=== PATIENT | female | born 1975 | race American Indian/Alaskan Native ===

== ENCOUNTER 2016-07-13 17:39 | Emergency (ER) | payer SELFPAY ==
[2016-07-13 18:10] VITALS: BP 198/102
--- NOTE | 2016-07-13 20:19 | Emergency Department Report ---
ED ENT HPI - General Chief complaint: Headache Stated complaint: SEVERE PAIN ON RIGHT SIDE OF HEAD Time Seen by Provider: 07/13/16 20:18 Source: patient Mode of arrival: Ambulatory Limitations: No Limitations - History of Present Illness Initial comments: 41-year-old female comes in with complaint of right side face pain with headache. Patient reports that she has a few bad teeth in her mouth that the pain is traveled up to her head. She does not have a dentist past medical history consists of hypertension. She denies any nausea vomiting or chills no fever. She has tried taking Aleve and Advil without any resolution of her pain. She reports she does not have a dentist. She does admit that she has not taken her hypertensive medicine which consists of hydrochlorothiazide 25 mg since Sunday. MD complaint: tooth pain Severity: severe Severity scale (0 -10): 10 Quality: stabbing, aching Consistency: constant Improves with: none - Related Data Home Medications Medication Instructions Recorded Confirmed Last Taken Albuterol Sulfate [Ventolin HFA] 2 puff IH Q4H PRN 04/28/15 04/28/15 Unknown Ergocalciferol (Vitamin D2) 1.25 mg PO DAILY 04/28/15 04/28/15 Unknown [Vitamin D2] Hydrochlorothiazide [HCTZ] 25 mg PO QDAY 04/28/15 04/28/15 Unknown Tl-Hem 150 1 tab PO DAILY 04/28/15 05/11/15 Unknown Previous Rx's Medication Instructions Recorded Last Taken Type Sennosides Tab [Senokot] 17.2 mg PO QHS PRN #30 tablet 05/12/15 Unknown Rx oxyCODONE /ACETAMINOPHEN [Percocet 1 tab PO Q4HR #30 tablet 05/12/15 Unknown Rx 5/325 mg] Clindamycin [Clindamycin CAP] 300 mg PO Q8H #30 cap 07/13/16 Unknown Rx Ibuprofen [Motrin 800 MG tab] 800 mg PO TID PRN #30 tablet 07/13/16 Unknown Rx Allergies Allergy/AdvReac Type Severity Reaction Status Date / Time No Known Allergies Allergy Unverified 04/27/15 09:59 ED Dental HPI - General Chief complaint: Headache Stated complaint: SEVERE PAIN ON RIGHT SIDE OF HEAD Time Seen by Provider: 07/13/16 20:18 Source: patient Mode of arrival: Ambulatory Limitations: No Limitations - Related Data Home Medications Medication Instructions Recorded Confirmed Last Taken Albuterol Sulfate [Ventolin HFA] 2 puff IH Q4H PRN 04/28/15 04/28/15 Unknown Ergocalciferol (Vitamin D2) 1.25 mg PO DAILY 04/28/15 04/28/15 Unknown [Vitamin D2] Hydrochlorothiazide [HCTZ] 25 mg PO QDAY 04/28/15 04/28/15 Unknown Tl-Hem 150 1 tab PO DAILY 04/28/15 05/11/15 Unknown Previous Rx's Medication Instructions Recorded Last Taken Type Sennosides Tab [Senokot] 17.2 mg PO QHS PRN #30 tablet 05/12/15 Unknown Rx oxyCODONE /ACETAMINOPHEN [Percocet 1 tab PO Q4HR #30 tablet 05/12/15 Unknown Rx 5/325 mg] Clindamycin [Clindamycin CAP] 300 mg PO Q8H #30 cap 07/13/16 Unknown Rx Ibuprofen [Motrin 800 MG tab] 800 mg PO TID PRN #30 tablet 07/13/16 Unknown Rx Allergies Allergy/AdvReac Type Severity Reaction Status Date / Time No Known Allergies Allergy Unverified 04/27/15 09:59 ED Review of Systems ROS: Stated complaint: SEVERE PAIN ON RIGHT SIDE OF HEAD Other details as noted in HPI ENT: dental pain Neurological: headache ED Past Medical Hx - Past Medical History Previous Medical History?: Yes Hx Hypertension: Yes (2009) Hx Congestive Heart Failure: No Hx Diabetes: No Hx Asthma: Yes Hx COPD: No Hx HIV: No - Surgical History Hx Cholecystectomy: Yes Additional Surgical History: HYSTERECTOMY - Social History Smoking Status: Never Smoker Substance Use Type: None - Medications Home Medications: Home Medications Medication Instructions Recorded Confirmed Last Taken Type Albuterol Sulfate [Ventolin HFA] 2 puff IH Q4H PRN 04/28/15 04/28/15 Unknown History Ergocalciferol (Vitamin D2) 1.25 mg PO DAILY 04/28/15 04/28/15 Unknown History [Vitamin D2] Hydrochlorothiazide [HCTZ] 25 mg PO QDAY 04/28/15 04/28/15 Unknown History Tl-Hem 150 1 tab PO DAILY 04/28/15 05/11/15 Unknown History Sennosides Tab [Senokot] 17.2 mg PO QHS PRN #30 tablet 05/12/15 Unknown Rx oxyCODONE /ACETAMINOPHEN [Percocet 1 tab PO Q4HR #30 tablet 05/12/15 Unknown Rx 5/325 mg] Clindamycin [Clindamycin CAP] 300 mg PO Q8H #30 cap 07/13/16 Unknown Rx Ibuprofen [Motrin 800 MG tab] 800 mg PO TID PRN #30 tablet 07/13/16 Unknown Rx ED Physical Exam - General Limitations: No Limitations, Language Barrier - Head Head exam: Present: atraumatic, normocephalic - Eye Eye exam: Present: normal appearance - Expanded ENT Exam Expanded Teeth exam: Present: dental caries, fractured tooth # (32, 19, 18) Throat exam: Positive: normal inspection - Neck Neck exam: Present: normal inspection, tenderness (right jaw tenderness) - Cardiovascular Cardiovascular Exam: Present: regular rate, normal rhythm, normal heart sounds ED Course Vital Signs 07/13/16 18:06 Temperature 98.9 F Pulse Rate 81 Respiratory 22 Rate Blood Pressure 198/102 O2 Sat by Pulse 100 Oximetry ED Medical Decision Making - Medical Decision Making Patient's been evaluated by this provider fast track. Discussed the patient we' ll give her something for pain as well as will start her on clindamycin 600 mg by mouth now discharged her on clindamycin 300 mg by mouth 3 times a day for 10 days. Also discharged patient on ibuprofen 800 mg one tablet by mouth 3 times a day when necessary for pain. We will give patient [place] 5/325 mg now. As well as we will refer her to one of the community dentists Critical care attestation.: If time is entered above; I have spent that time in minutes in the direct care of this critically ill patient, excluding procedure time. ED Disposition Clinical Impression: Partial loss of tooth due to caries Qualifiers: Tooth loss class: class IV tooth loss Qualified Code(s): K08.434 - Partial loss of teeth due to caries, class IV Partial loss of tooth due to caries Qualifiers: Tooth loss class: class IV tooth loss Qualified Code(s): K08.434 - Partial loss of teeth due to caries, class IV Disposition: DISCHARGED TO HOME OR SELFCARE Is pt being admited?: No Does the pt Need Aspirin: No Condition: Stable Instructions: Dental Caries (ED), Toothache (ED), Dental Abscess (ED) Additional Instructions: Complete all antibiotics as prescribed IB Profen when necessary for pain. Importantly to follow with a dentist Prescriptions: Clindamycin [Clindamycin CAP] 300 mg PO Q8H #30 cap Ibuprofen [Motrin 800 MG tab] 800 mg PO TID PRN #30 tablet PRN Reason: Pain Referrals: PRIMARY CARE, [Primary Care Provider] - 3-5 Days Forms: Work/School Release Form(ED)
[2016-07-13] MEDS ORDERED: NORCO 5/325 PO ONE (20:20)
[2016-07-13] MEDS ORDERED: CLEOCIN PO ONE (20:20)
== END 2016-07-13 20:32 | disposition home or self-care (01) ==
LOC: ED 17:39
DX: K08.4 Partial loss of teeth (principal); I10 Essential (primary) hypertension; J45.909 Unspecified asthma, uncomplicated
CPT/HCPCS: 99282

== ENCOUNTER 2017-04-30 05:26 | Emergency (ER) | payer SELFPAY ==
[2017-04-30 05:36] VITALS: BP 184/90
[2017-04-30] MEDS ORDERED: TRIMOX PO ONE (09:41)
[2017-04-30] MEDS ORDERED: TYLENOL #3 PO ONE (09:41)
--- NOTE | 2017-04-30 09:42 | Emergency Department Report ---
HPI - General Chief Complaint: Dental/Oral Time Seen by Provider: 04/30/17 09:17 - HPI HPI: The patient is a 42-year-old female who presents to ED complaining of 7/10 pain in the right side of his mouth x 3days . Patient states that the pain started 3 days ago and has been worse since then The pain is exacerbated by eating and opening of the mouth. Patient states that it radiates towards throat and ear. Patient describes a as a throbbing, pressure-like sensation. Patient states otherwise well and has no other complaints. Patient has had no fevers and no chills. No chest pain, no shortness of breath. No abdominal pain. No shortness of breath or recent trauma to the face. ED Past Medical Hx - Past Medical History Previous Medical History?: Yes Hx Hypertension: Yes (2009) Hx Congestive Heart Failure: No Hx Diabetes: No Hx Asthma: Yes Hx COPD: No Hx HIV: No Additional medical history: Anemia - Surgical History Past Surgical History?: Yes Hx Cholecystectomy: Yes Additional Surgical History: HYSTERECTOMY - Social History Smoking Status: Never Smoker Substance Use Type: None - Medications Home Medications: Home Medications Medication Instructions Recorded Confirmed Last Taken Type Albuterol Sulfate [Ventolin HFA] 2 puff IH Q4H PRN 04/28/15 04/28/15 Unknown History Ergocalciferol (Vitamin D2) 1.25 mg PO DAILY 04/28/15 04/28/15 Unknown History [Vitamin D2] Hydrochlorothiazide [HCTZ] 25 mg PO QDAY 04/28/15 04/28/15 Unknown History Tl-Hem 150 1 tab PO DAILY 04/28/15 05/11/15 Unknown History Sennosides Tab [Senokot] 17.2 mg PO QHS PRN #30 tablet 05/12/15 Unknown Rx oxyCODONE /ACETAMINOPHEN [Percocet 1 tab PO Q4HR #30 tablet 05/12/15 Unknown Rx 5/325 mg] Clindamycin [Clindamycin CAP] 300 mg PO Q8H #30 cap 07/13/16 Unknown Rx Acetaminophen/Codeine [Tylenol 1 tab PO Q6H #10 tablet 04/30/17 Unknown Rx /Codeine # 3 tab] Amoxicillin [Trimox CAP] 500 mg PO TID #21 capsule 04/30/17 Unknown Rx Ibuprofen [Motrin 800 MG tab] 800 mg PO TID PRN #30 tablet 04/30/17 Unknown Rx ED Review of Systems ROS: Stated complaint: TOOTHACHE Other details as noted in HPI Constitutional: denies: chills, fever Eyes: denies: eye pain, eye discharge, vision change ENT: dental pain. denies: ear pain, throat pain, hearing loss, congestion Respiratory: denies: cough, shortness of breath, wheezing Cardiovascular: denies: chest pain, palpitations Endocrine: no symptoms reported Gastrointestinal: denies: abdominal pain, nausea, diarrhea Genitourinary: denies: urgency, dysuria, discharge Musculoskeletal: denies: back pain, joint swelling, arthralgia Skin: denies: rash, lesions Neurological: denies: headache, weakness, paresthesias Psychiatric: denies: anxiety, depression Hematological/Lymphatic: denies: easy bleeding, easy bruising Physical Exam - Physical Exam Vital Signs: Vital Signs 04/30/17 05:32 Temperature 98.1 F Pulse Rate 63 Respiratory 18 Rate Blood Pressure 184/90 O2 Sat by Pulse 100 Oximetry Physical Exam: GENERAL: Alert and oriented x3, no apparent distress, Normal Gait, atraumatic. HEAD: Head is normocephalic and a-traumatic. EYES: Extra ocular muscles are intact. Pupils are equal, round, and reactive to light and accommodation. EARS: symetrical, atraumatic, non tender, ear canal clear and moderate cerumen, tympanic membrance non inflamed. gross auditory nml bilaterally. NOSE: Nose symetrical, Nontender,Nares appeared normal. MOUTH:Mouth is well hydrated and without lesions. Tonsils nonerythematous or swollen, Uvula midline, Tongue not elevated. Mucous membranes are moist. Posterior pharynx clear, no exudate or lesions. Patent airways. Tooth #30 partially missing, tooth #20 and 21 partially missing. Tender to palpation above tooth #30. No change of her enlargement, no bleeding of the gums, no discharge NECK: Supple. Non edematous, No lymphadenopathy or thyromegaly. SKIN: Warm and dry, No lesions, No ulceration or induration present. ED Course Vital Signs 04/30/17 05:32 Temperature 98.1 F Pulse Rate 63 Respiratory 18 Rate Blood Pressure 184/90 O2 Sat by Pulse 100 Oximetry ED Medical Decision Making - Medical Decision Making 42-year-old female who presents with right sided Facial pain secondary to odontogenic caries ED course: Patient received 1000 mg of amoxicillin, 2 tablets of Tylenol No. 3. Odontogenic infection versus ear infection. Based upon history and physical examination, pain is a result of an infection of tooth number 30 and that the pain Pt feels on the right side of his face and towards the ear is referred pain from this infectious process. Pt has no evidence of acute impending airway compromise. At this point, patient will be discharged home on some antibiotics and pain trial, she will do well with an outpatient course of antibiotics. Follow up with the Dental Clinic as referred Vital signs are normal patient is in no acute distress. Pt had an effect uneventful ED stay Critical care attestation.: If time is entered above; I have spent that time in minutes in the direct care of this critically ill patient, excluding procedure time. ED Disposition Clinical Impression: Pain, dental Disposition: TO HOME OR SELFCARE Is pt being admited?: No Does the pt Need Aspirin: No Condition: Stable Instructions: Toothache (ED), Dental Caries (ED) Additional Instructions: Make sure you take your antibiotic dose and complete it Take medications as needed for pain Follow up with dental clinic as referred. Prescriptions: Acetaminophen/Codeine [Tylenol /Codeine # 3 tab] 1 tab PO Q6H #10 tablet Amoxicillin [Trimox CAP] 500 mg PO TID #21 capsule Ibuprofen [Motrin 800 MG tab] 800 mg PO TID PRN #30 tablet PRN Reason: Pain Referrals: PRIMARY CARE, [Primary Care Provider] - 3-5 Days [facility] [Outside] - 3-5 Days [facility] [Outside] - 3-5 Days [facility] [Outside] - 3-5 Days [facility] [Outside] - 3-5 Days Forms: Accompanied Note, Work/School Release Form(ED) Time of Disposition: 10:00
== END 2017-04-30 10:10 | disposition home or self-care (01) ==
LOC: ED 05:26
DX: K08.89 Other specified disorders of teeth and supporting structures (principal); I10 Essential (primary) hypertension; J45.909 Unspecified asthma, uncomplicated; Z90.49 Acquired absence of other specified parts of digestive tract
CPT/HCPCS: 99282

== ENCOUNTER 2018-08-30 21:33 | Inpatient (IN) | payer SELFPAY ==
[2018-08-30] MEDS ORDERED: ASPIRIN PO ONE (21:43)
--- NOTE | 2018-08-30 21:46 | Emergency Department Report ---
Chief Complaint: Chest Pain Stated Complaint: CHEST PRESSURE, LEFT SIDE NUMBNESS Time Seen by Provider: 08/30/18 21:41 - HPI History of Present Illness: This is a 43 y.o. female that presents with substernal chest pain that is radiating down LUE for 30 mins to 1 hour. PMH iron deficiency, HTN, and Asthma. - ROS Review of Systems: substernal chest pain radiating to LLE. - Exam Vital Signs: Vital Signs 08/30/18 21:42 Temperature 98.1 F Pulse Rate 112 H Respiratory 18 Rate Blood Pressure 198/97 O2 Sat by Pulse 97 Oximetry MSE screening note: Focused history and physical exam performed. Due to findings the following was ordered: Labs, ekg, and CXR ED Disposition for MSE Condition: Stable
[2018-08-30 22:01] LABS: Basophils % (Auto) 0.5 % (0.0-1.8); Eosinophils # (Auto) 0.1 K/mm3 (0.0-0.4); Eosinophils % (Auto) 0.8 % (0.0-4.3); Hematocrit 35.6 % (30.3-42.9); Hemoglobin 11.7 gm/dl (10.1-14.3); Lymphocytes # (Auto) 3.2 K/mm3 (1.2-5.4); Lymphocytes % (Auto) 40.9 % (13.4-35.0); Mean Corpuscular HGB Conc 33 % (30-34); Mean Corpuscular Volume 89 fl (79-97); Monocytes # (Auto) 0.3 K/mm3 (0.0-0.8); Monocytes % (Auto) 4.3 % (0.0-7.3); Platelet Count 245 K/mm3 (140-440); Red Blood Count 4.01 M/mm3 (3.65-5.03); Red Cell Distribution Width 14.8 % (13.2-15.2)
--- NOTE | 2018-08-30 22:23 | Emergency Department Report ---
ED Chest Pain HPI - General Chief Complaint: Chest Pain Stated Complaint: CHEST PRESSURE, LEFT SIDE NUMBNESS Time Seen by Provider: 08/30/18 22:01 Source: patient Mode of arrival: Ambulatory Limitations: No Limitations - History of Present Illness Initial Comments: Patient is a 43-year-old female that presents emergency room with complaints of chest pain that started when he minutes prior to arrival. Patient states her pain is the same. Patient denies diaphoresis and nausea and vomiting. Patient states the pain is a 7 out of 10. Patient states that she is also having shortness of breath. Patient states her symptoms are better with rest and worse with exertion. Patient denies anxiety. MD Complaint: chest pain -: Sudden Onset: during rest Pain Location: substernal, left chest Pain Radiation: LUE Severity: severe Severity scale (0 -10): 7 Quality: aching, heaviness, sharp Consistency: constant Improves With: rest Worsens With: exertion re: dyspnea, sense of impending doom. denies: nausea, vomting, diaphoresis Other Symptoms: denies: cough, fever, syncope, rash, acid taste in mouth, leg swelling, palpitations, burping Treatments Prior to Arrival: none Aspirin use within the Past 7 Days: (1) Yes - Related Data On Oral Contraceptives: No Home Medications Medication Instructions Recorded Confirmed Last Taken No Known Home Medications [No 08/31/18 08/31/18 Unknown Reported Home Medications] Allergies Allergy/AdvReac Type Severity Reaction Status Date / Time No Known Allergies Allergy Verified 04/30/17 05:35 Heart Score - HEART Score History: Slightly suspicious EKG: Non-specific Age: 45-65 Risk factors: No known risk factors Troponin: < normal limit HEART Score: 2 ED Review of Systems ROS: Stated complaint: CHEST PRESSURE, LEFT SIDE NUMBNESS Other details as noted in HPI Constitutional: denies: chills, fever Eyes: denies: eye pain, eye discharge, vision change ENT: denies: ear pain, throat pain Respiratory: denies: cough, shortness of breath, wheezing Cardiovascular: denies: chest pain, palpitations Endocrine: no symptoms reported Gastrointestinal: denies: abdominal pain, nausea, diarrhea Genitourinary: denies: urgency, dysuria, discharge Musculoskeletal: denies: back pain, joint swelling, arthralgia Skin: denies: rash, lesions Neurological: denies: headache, weakness, paresthesias Psychiatric: denies: anxiety, depression Hematological/Lymphatic: denies: easy bleeding, easy bruising ED Past Medical Hx - Past Medical History Previous Medical History?: Yes Hx Hypertension: Yes (2009) Hx Congestive Heart Failure: No Hx Diabetes: No Hx Asthma: Yes Hx COPD: No Hx HIV: No Additional medical history: Anemia - Surgical History Hx Cholecystectomy: Yes Additional Surgical History: HYSTERECTOMY - Family History Family history: hypertension - Social History Smoking Status: Current Every Day Smoker Substance Use Type: None - Medications Home Medications: Home Medications Medication Instructions Recorded Confirmed Last Taken Type No Known Home Medications [No 08/31/18 08/31/18 Unknown History Reported Home Medications] ED Physical Exam - General Limitations: No Limitations General appearance: alert, in no apparent distress - Head Head exam: Present: atraumatic, normocephalic - Eye Eye exam: Present: normal appearance - ENT ENT exam: Present: mucous membranes moist - Neck Neck exam: Present: normal inspection - Respiratory Respiratory exam: Present: normal lung sounds bilaterally. Absent: respiratory distress - Cardiovascular Cardiovascular Exam: Present: regular rate, normal rhythm. Absent: systolic murmur, diastolic murmur, rubs, gallop - GI/Abdominal GI/Abdominal exam: Present: soft, normal bowel sounds - Extremities Exam Extremities exam: Present: normal inspection - Back Exam Back exam: Present: normal inspection - Neurological Exam Neurological exam: Present: alert, oriented X3 - Psychiatric Psychiatric exam: Present: normal affect, normal mood - Skin Skin exam: Present: warm, dry, intact, normal color. Absent: rash ED Course Vital Signs 08/30/18 08/30/18 08/30/18 21:42 23:16 23:20 Temperature 98.1 F Pulse Rate 112 H 79 Respiratory 18 16 16 Rate Blood Pressure 198/97 Blood Pressure [Right] O2 Sat by Pulse 97 98 Oximetry 08/30/18 08/30/18 08/30/18 23:23 23:31 23:45 Temperature 98.6 F Pulse Rate 73 83 74 Respiratory 11 L 15 11 L Rate Blood Pressure 166/86 173/85 Blood Pressure 172/85 [Right] O2 Sat by Pulse 100 100 98 Oximetry 08/31/18 08/31/18 08/31/18 00:00 00:15 00:30 Temperature Pulse Rate 73 84 74 Respiratory 14 14 18 Rate Blood Pressure 153/87 146/86 168/90 Blood Pressure [Right] O2 Sat by Pulse 99 98 98 Oximetry 08/31/18 08/31/18 00:45 01:00 Temperature Pulse Rate 71 72 Respiratory 21 16 Rate Blood Pressure 155/81 157/82 Blood Pressure [Right] O2 Sat by Pulse 98 100 Oximetry - Reevaluation(s) Reevaluation #1: Discussed all results the patient. Patient admitted to the hospitalist service. Patient agrees with admission 08/31/18 00:04 - Consultations Consultation #1: Hospitalist consulted for admission. Hospitalist to admit patient. Hospitalist to assume care patient 08/31/18 00:04 NAIN score - Nain Score Age > 65: (0) No Aspirin use within the Past 7 Days: (0) No 3 or more CAD Risk Factors: (0) No 2 or more Angina events in past 24 hrs: (0) No Known CAD with more than 50% Stenosis: (0) No Elevated Cardiac Markers: (0) No ST Deviation Greater than 0.5mm: (0) No NAIN Score: 0 ED Medical Decision Making - Lab Data Result diagrams: 08/30/18 21:46 08/30/18 21:46 - EKG Data -: EKG Interpreted by [facility] EKG shows normal: sinus rhythm, axis, intervals, QRS complexes, ST-T waves Rate: normal - Radiology Data Radiology results: report reviewed, image reviewed PROCEDURE: Chest. TECHNIQUE: Portable AP view. HISTORY: Chest pain. COMPARISONS: None. FINDINGS: The heart and mediastinum appear normal. The lungs are clear and well expanded. There are no pleural effusions. The soft tissues and regional skeleton are unremarkable. IMPRESSION: Negative portable chest. - Medical Decision Making She is a 43-year-old female that presents emergency room with complaints of chest pain. Patient admitted to the hospitalist service for further outpatient treatment and rule out ACS. Patient's initial cardiac workup negative. EKG negative. Patient's chest x-ray negative. - Differential Diagnosis chest pain. ACS. Shortness of breath. Critical care attestation.: If time is entered above; I have spent that time in minutes in the direct care of this critically ill patient, excluding procedure time. ED Disposition Clinical Impression: Shortness of breath at rest Chest pain Qualifiers: Chest pain type: unspecified Qualified Code(s): R07.9 - Chest pain, unspecified Hypertension Qualifiers: Hypertension type: essential hypertension Qualified Code(s): I10 - Essential (primary) hypertension Disposition: DC-09 OP ADMIT IP TO THIS HOSP Is pt being admited?: Yes Does the pt Need Aspirin: No Condition: Serious Time of Disposition: 03:33
[2018-08-30 22:26] LABS: BUN/Creatinine Ratio 9; Blood Urea Nitrogen 9 mg/dL (7-17); Calcium 9.5 mg/dL (8.4-10.2); Hemolysis Index 3
--- NOTE | 2018-08-30 22:38 | XRay Report ---
PROCEDURE: Chest. TECHNIQUE: Portable AP view. HISTORY: Chest pain. COMPARISONS: None. FINDINGS: The heart and mediastinum appear normal. The lungs are clear and well expanded. There are no pleural effusions. The soft tissues and regional skeleton are unremarkable. IMPRESSION: Negative portable chest. This document is electronically signed by Sukhjinder Townsend MD., August 30 2018 10:36:07 PM ET
--- NOTE | 2018-08-31 03:17 | History and Physical Report ---
<PAOLO WILLIAMSON - Last Filed: 08/31/18 03:20> History of Present Illness Date of examination: 08/31/18 Date of admission: 08/31/18 00:34 Chief complaint: Chest pain History of present illness: Patient is a 43-year-old female with past medical history of uncontrolled hypertension, controlled asthma, anemia, who presents to the ER with complaints of chest pain. Patient states that the chest pain started a few minutes prior to arrival to the ER, it is a chest pressure associated with shortness of breath and diaphoresis, patient states that the pain radiates to the left arm causing numbness. Patient denies personal history of chest pain but reports family history of chest pain. Patient denies any acute illness, denies nausea, denies vomiting, denies headache, denies dizziness. In the ER patient's blood pressure was 198/97, she is the EKG shows sinus tach with left atrial enlargement but no STEMI criteria, his first cardiac enzymes was negative. Patient admits to smoke 3 cigarettes per week and report family history of CAD. Past History Past Medical History: anemia, hypertension, other (asthma) Past Surgical History: hysterectomy Social history: lives with family Family history: CAD, hypertension Medications and Allergies Allergies Allergy/AdvReac Type Severity Reaction Status Date / Time No Known Allergies Allergy Verified 04/30/17 05:35 Home Medications Medication Instructions Recorded Confirmed Last Taken Type No Known Home Medications [No 08/31/18 08/31/18 Unknown History Reported Home Medications] Active Meds: Active Medications Enoxaparin Sodium (Lovenox) 40 mg SUB-Q QDAY RERE Review of Systems Cardiovascular: chest pain Respiratory: shortness of breath Exam - Constitutional Vitals: Temp Pulse Resp BP Pulse Ox 98.6 F 63 16 157/82 100 08/30/18 23:23 08/31/18 02:23 08/31/18 01:00 08/31/18 01:00 08/31/18 01:00 General appearance: Present: mild distress - EENT Eyes: Present: EOM intact ENT: hearing intact - Neck Neck: Present: supple - Respiratory Respiratory effort: normal Respiratory: bilateral: CTA - Cardiovascular Rhythm: regular - Extremities Extremities: no ischemia Peripheral Pulses: within normal limits - Abdominal General gastrointestinal: Present: non-tender, non-distended Female genitourinary: Present: deferred - Rectal Rectal Exam: deferred - Integumentary Integumentary: Present: warm, dry - Musculoskeletal Musculoskeletal: strength equal bilaterally - Psychiatric Psychiatric: appropriate mood/affect, cooperative - Neurologic Neurologic: moves all extremities Results - Labs CBC & Chem 7: 08/30/18 21:46 08/30/18 21:46 Labs: Laboratory Last Values WBC 7.7 K/mm3 (4.5-11.0) 08/30/18 21:46 RBC 4.01 M/mm3 (3.65-5.03) 08/30/18 21:46 Hgb 11.7 gm/dl (10.1-14.3) 08/30/18 21:46 Hct 35.6 % (30.3-42.9) 08/30/18 21:46 MCV 89 fl (79-97) 08/30/18 21:46 MCH 29 pg (28-32) 08/30/18 21:46 MCHC 33 % (30-34) 08/30/18 21:46 RDW 14.8 % (13.2-15.2) 08/30/18 21:46 Plt Count 245 K/mm3 (140-440) 08/30/18 21:46 Lymph % (Auto) 40.9 % (13.4-35.0) H 08/30/18 21:46 Archer % (Auto) 4.3 % (0.0-7.3) 08/30/18 21:46 Eos % (Auto) 0.8 % (0.0-4.3) 08/30/18 21:46 Baso % (Auto) 0.5 % (0.0-1.8) 08/30/18 21:46 Lymph # 3.2 K/mm3 (1.2-5.4) 08/30/18 21:46 Archer # 0.3 K/mm3 (0.0-0.8) 08/30/18 21:46 Eos # 0.1 K/mm3 (0.0-0.4) 08/30/18 21:46 Baso # 0.0 K/mm3 (0.0-0.1) 08/30/18 21:46 Seg Neutrophils % 53.5 % (40.0-70.0) 08/30/18 21:46 Seg Neutrophils # 4.1 K/mm3 (1.8-7.7) 08/30/18 21:46 Sodium 139 mmol/L (137-145) 08/30/18 21:46 Potassium 3.7 mmol/L (3.6-5.0) 08/30/18 21:46 Chloride 101.5 mmol/L (98-107) 08/30/18 21:46 Carbon Dioxide 26 mmol/L (22-30) 08/30/18 21:46 Anion Gap 15 mmol/L 08/30/18 21:46 BUN 9 mg/dL (7-17) 08/30/18 21:46 Creatinine 1.0 mg/dL (0.7-1.2) 08/30/18 21:46 Estimated GFR > 60 ml/min 08/30/18 21:46 BUN/Creatinine Ratio 9 % 08/30/18 21:46 Glucose 86 mg/dL (65-100) 08/30/18 21:46 Calcium 9.5 mg/dL (8.4-10.2) 08/30/18 21:46 Troponin T < 0.010 ng/mL (0.00-0.029) 08/31/18 00:32 NT-Pro-B Natriuret Pep 236.8 pg/mL (0-450) 08/30/18 21:46 Assessment and Plan Assessment and plan: 1. Chest pain rule out ACS 2. Accelerated hypertension 3. History of asthma (stable) 4. Iron deficiency Anemia Plan: [facility] for chest pain Monitor cardiac enzymes every 6 hours 2 more Repeat EKG with chest pain Hydralazine 10 mg IV every 4 hours PRN for SBP greater than 165 Continue HCTZ and amlodipine for the elevated BP Keep NPO for Stress test in the a.m. Advance Directives: Yes VTE prophylaxis?: Chemical Plan of care discussed with patient/family: Yes <SERG WARD - Last Filed: 08/31/18 06:47> History of Present Illness Date of admission: 08/31/18 00:34 Medications and Allergies Active Meds: Active Medications Amlodipine Besylate (Norvasc) 5 mg PO QDAY RERE Enoxaparin Sodium (Lovenox) 40 mg SUB-Q QDAY RERE Hydralazine HCl (Apresoline) 10 mg IV Q4H PRN PRN Reason: Hypertension Exam - Constitutional Vitals: Temp Pulse Resp BP Pulse Ox 98.6 F 63 16 157/82 100 08/30/18 23:23 08/31/18 02:23 08/31/18 01:00 08/31/18 01:00 08/31/18 01:00 Results - Labs CBC & Chem 7: 08/30/18 21:46 08/30/18 21:46 Labs: Laboratory Last Values WBC 7.7 K/mm3 (4.5-11.0) 08/30/18 21:46 RBC 4.01 M/mm3 (3.65-5.03) 08/30/18 21:46 Hgb 11.7 gm/dl (10.1-14.3) 08/30/18 21:46 Hct 35.6 % (30.3-42.9) 08/30/18 21:46 MCV 89 fl (79-97) 08/30/18 21:46 MCH 29 pg (28-32) 08/30/18 21:46 MCHC 33 % (30-34) 08/30/18 21:46 RDW 14.8 % (13.2-15.2) 08/30/18 21:46 Plt Count 245 K/mm3 (140-440) 08/30/18 21:46 Lymph % (Auto) 40.9 % (13.4-35.0) H 08/30/18 21:46 Archer % (Auto) 4.3 % (0.0-7.3) 08/30/18 21:46 Eos % (Auto) 0.8 % (0.0-4.3) 08/30/18 21:46 Baso % (Auto) 0.5 % (0.0-1.8) 08/30/18 21:46 Lymph # 3.2 K/mm3 (1.2-5.4) 08/30/18 21:46 Archer # 0.3 K/mm3 (0.0-0.8) 08/30/18 21:46 Eos # 0.1 K/mm3 (0.0-0.4) 08/30/18 21:46 Baso # 0.0 K/mm3 (0.0-0.1) 08/30/18 21:46 Seg Neutrophils % 53.5 % (40.0-70.0) 08/30/18 21:46 Seg Neutrophils # 4.1 K/mm3 (1.8-7.7) 08/30/18 21:46 Sodium 139 mmol/L (137-145) 08/30/18 21:46 Potassium 3.7 mmol/L (3.6-5.0) 08/30/18 21:46 Chloride 101.5 mmol/L (98-107) 08/30/18 21:46 Carbon Dioxide 26 mmol/L (22-30) 08/30/18 21:46 Anion Gap 15 mmol/L 08/30/18 21:46 BUN 9 mg/dL (7-17) 08/30/18 21:46 Creatinine 1.0 mg/dL (0.7-1.2) 08/30/18 21:46 Estimated GFR > 60 ml/min 08/30/18 21:46 BUN/Creatinine Ratio 9 % 08/30/18 21:46 Glucose 86 mg/dL (65-100) 08/30/18 21:46 Calcium 9.5 mg/dL (8.4-10.2) 08/30/18 21:46 Troponin T < 0.010 ng/mL (0.00-0.029) 08/31/18 00:32 NT-Pro-B Natriuret Pep 236.8 pg/mL (0-450) 08/30/18 21:46 Assessment and Plan Assessment and plan: 43-year-old WOman with a history of hypertension, noncompliant with medication, comes to emergency room with complaints of chest pain located in the left chest radiating to the left arm, she describes a burning, constant, physical exam is benign. Right hypertensive urgency associated with chest pain, obtained stress test. Medication compliance discussed patient
[2018-08-31] MEDS ORDERED: APRESOLINE IV PRN (04:15)
[2018-08-31] MEDS ORDERED: LEXISCAN IV ONE (07:59)
[2018-08-31] MEDS ORDERED: NORVASC PO SCH ×2 (10:00→11:56)
[2018-08-31] MEDS ORDERED: LOVENOX SUB-Q SCH (10:00)
[2018-08-31] MEDS ORDERED: ZESTRIL PO SCH (12:00)
--- NOTE | 2018-08-31 12:28 | Treadmill Report ---
TREADMILL STRESS TEST REASON FOR STUDY: Chest pain. IMAGING RESULTS: This patient's baseline EKG, sinus rhythm with nonspecific ST-Ts. Baseline vitals were heart rate 65, baseline blood pressure 165/74. The patient exercised on Raghu protocol for 7 minutes 30 seconds. The patient had no EKG changes suggestive of ischemia, achieved a peak heart rate of 148, which is 85% of max predicted heart rate. Peak blood pressure 184/99. The patient had no EKG changes suggestive of ischemia, has stopped secondary to shortness of breath. SUMMARY: 1. Negative treadmill EKG. 2. Fair exercise capacity 7 minutes 36 seconds of Raghu protocol. 3. No exaggerated BP response to exercise. 4. There are no diagnostic EKG changes suggestive of ischemia. JOB# [id number] LISHA/ALEX
[2018-08-31 12:33] VITALS: BP 167/65
--- NOTE | 2018-08-31 13:49 | Discharge Summary ---
Providers - Providers Date of Admission: 08/31/18 00:34 Date of discharge: 08/31/18 Attending physician: ANÍBAL GARCIA Primary care physician: [facility] Hospitalization Condition: Serious Pertinent studies: CXR exercise stress test Hospital course: Patient is a 43-year-old female with past medical history of uncontrolled hypertension, controlled asthma, anemia, who presents to the ER with complaints of chest pain. In the ER patient's blood pressure was 198/97, she is the EKG shows sinus tach with left atrial enlargement but no STEMI criteria, his cardiac enzymes were negative. Patient admits to smoke 3 cigarettes per week and report family history of CAD. His BP meds were adjusted, exercise stress test was norm al. Patient was then discharged home in stable condition with outpt follow up. Discharge Diagnosis: 1. Chest pain ruled out ACS - Likely from uncontrolled BP vs GERD - exercise stress test was normal 2. Accelerated hypertension, improved 3. History of asthma (stable) 4. Iron deficiency Anemia Disposition: - TO HOME OR SELFCARE Time spent for discharge: 34 minutes Core Measure Documentation - Palliative Care Palliative Care/ Comfort Measures: Not Applicable - Core Measures Any of the following diagnoses?: none Exam - Constitutional Vitals: Temp Pulse Resp BP Pulse Ox 97.9 F 57 L 20 167/65 98 08/31/18 12:30 08/31/18 12:30 08/31/18 12:30 08/31/18 12:30 08/31/18 12:30 Plan Activity: advance as tolerated Weight Bearing Status: Weight Bear as Tolerated Diet: low fat, low salt Follow up with: SETH HOPKINS MD [Primary Care Provider] - 3-5 Days Forms: Work/School Release Form Prescriptions: AtorvaSTATin [Lipitor] 40 mg PO QHS #30 tab Aspirin EC [Aspirin Enteric Coated TAB] 81 mg PO QDAY #30 tablet. amLODIPine [Norvasc] 10 mg PO QDAY #30 tablet Lisinopril [Zestril TAB] 10 mg PO QDAY #30 tablet
== END 2018-08-31 14:21 | disposition home or self-care (01) | DRG 392 ==
LOC: ED 21:33 → 4A 08-31 00:34
PROVIDERS: ADMIT Internal Medicine; ATTEND Internal Medicine
DX: K21.9 Gastro-esophageal reflux disease without esophagitis (principal); I16.0 Hypertensive urgency; F17.210 Nicotine dependence, cigarettes, uncomplicated; D50.9 Iron deficiency anemia, unspecified; I10 Essential (primary) hypertension; J45.909 Unspecified asthma, uncomplicated; Z90.49 Acquired absence of other specified parts of digestive tract; Z90.710 Acquired absence of both cervix and uterus; Z82.49 Family history of ischemic heart disease and other diseases of the circulatory system; Z91.19 Patient's noncompliance with other medical treatment and regimen
CPT/HCPCS: 36415; 71045; 80048; 83880; 84484; 85025; 93005; 93010; 93017; G0378; J2785

== ENCOUNTER 2021-07-21 16:05 | Emergency (ER) | payer SELFPAY ==
[2021-07-21 16:09] VITALS: BP 198/100
--- NOTE | 2021-07-21 17:04 | Event Note ---
Date: 07/21/21 The patient was evaluated in the emergency department for symptoms described in the history of present illness. He/she was evaluated in the context of the global COVID-19 pandemic, which necessitated consideration that the patient might be at risk for infection with the virus that causes COVID-19. Institutional protocols and algorithms that pertain to the evaluation of patients at risk for COVID-19 are in a state of rapid change based on information released by regulatory bodies including the CDC and federal and state organizations. These policies and algorithms were followed during the patient's care in the emergency department. Please note that these policies, procedures and recommendations changed on a rapid basis. Verbal report received from emergency medical services EMS documentation not available at time of chart dictation Medical screening examination note: 46-year-old female who reports a history of tobacco use, hypertension, high cholesterol and diabetes presenting with left- sided chest wall pain that radiates down her left arm. She also reports a history of anemia, and she is COVID-19 not vaccinated. She denies travel, surgery, immobilization, oral contraceptive use, , DVT/pulmonary embolism risk factors. On examination, her chest wall pain is reproducible. Heart rate 82 bpm, blood pressure 165/87 mmHg. Obtain appropriate laboratory studies, EKG x2, troponin x2, x-ray the chest, detailed history and physical to be performed by oncoming ER provider.
== END 2021-07-21 23:04 | disposition left against medical advice (07) ==
LOC: ED 16:05
DX: R07.9 Chest pain, unspecified (principal); Z53.21 Procedure and treatment not carried out due to patient leaving prior to being seen by health care provider